=== PATIENT | male | born 1955 ===

== ENCOUNTER 2021-08-29 09:57 | Day surgery (SDC) | payer BC ==
[2021-08-29] MEDS ORDERED: VERAPAMIL SR240 M1 PO ×2 (13:03→13:04)
[2021-08-29] MEDS ORDERED: BUPROPION XL150 M1 PO (13:05)
[2021-08-29] MEDS ORDERED: ESOM20 PO (13:05)
== END 2021-08-29 15:15 | disposition home or self-care (01) ==
LOC: ATC 09:57
DX: U07.1 COVID-19 (principal)
CPT/HCPCS: 96365; Q0243